=== PATIENT | female | born 1975 ===

== ENCOUNTER 2022-02-02 07:45 | Inpatient (IN) | payer OTHER ==
[~2022-02-02] VITALS: Ht 165.1 cm; Wt 74.8 kg
[2022-02-02] MEDS ORDERED: LEVOTHYROXINE25 MCG PO (09:06)
[2022-02-02] MEDS ORDERED: ZOCOR20 MG PO (09:06)
== END 2022-02-06 11:15 | disposition home or self-care (01) | DRG 743 ==
LOC: O/R 02-05 06:25 → SURG 02-05 07:45 → EDBD 02-05 07:45 → SURG 02-05 18:45 → O/R 02-06 11:15
PROVIDERS: ADMIT Obstetrics & Gynecology Gynecologic Oncology; ATTEND Obstetrics & Gynecology Gynecologic Oncology
PROC: 0UT74ZZ Resection of Bilateral Fallopian Tubes, Percutaneous Endoscopic Approach (ICD-10-PCS; 2022-02-05)
PROC: 0UT24ZZ Resection of Bilateral Ovaries, Percutaneous Endoscopic Approach (ICD-10-PCS; 2022-02-05)
PROC: 0DNW4ZZ Release Peritoneum, Percutaneous Endoscopic Approach (ICD-10-PCS; 2022-02-05)
PROC: 0UT94ZZ Resection of Uterus, Percutaneous Endoscopic Approach (ICD-10-PCS; principal; 2022-02-05 18:45)
DX: N80.03 Adenomyosis of the uterus (principal); D27.1 Benign neoplasm of left ovary; N83.11 Corpus luteum cyst of right ovary; Z20.822 Contact with and (suspected) exposure to COVID-19; N72 Inflammatory disease of cervix uteri